=== PATIENT | male | born 1990 | race Caucasian/White ===

== ENCOUNTER 2021-04-18 08:53 | Emergency (ER) | payer BC ==
[2021-04-18] MEDS ORDERED: Boostrix 0.5 ML (Tdap) VIAL ONE (09:26)
== END 2021-04-18 09:40 | disposition home or self-care (01) ==
LOC: BURERS 08:53
DX: S61.211A Laceration without foreign body of left index finger without damage to nail, initial encounter (principal); K50.90 Crohn's disease, unspecified, without complications; M06.9 Rheumatoid arthritis, unspecified; Z23 Encounter for immunization; W27.8XXA Contact with other nonpowered hand tool, initial encounter; Z79.899 Other long term (current) drug therapy
CPT/HCPCS: 12001; 90471; 90715